=== PATIENT | female | born 1990 | race Caucasian/White ===

== ENCOUNTER 2021-12-21 14:47 | Emergency (ER) | payer MEDICAID ==
[~2021-12-21] VITALS: Ht 170.2 cm; Wt 140.2 kg
[2021-12-21 16:18] VITALS: BP 138/63
[2021-12-21] MEDS ORDERED: IBUP800T27 PO (16:50)
== END 2021-12-21 17:08 | disposition home or self-care (01) ==
LOC: ER 14:47
DX: S46.911A Strain of unspecified muscle, fascia and tendon at shoulder and upper arm level, right arm, initial encounter (principal); W18.39XA Other fall on same level, initial encounter; Y93.89 Activity, other specified; Y92.89 Other specified places as the place of occurrence of the external cause; Y99.8 Other external cause status
CPT/HCPCS: 73060